=== PATIENT | female | born 1990 | race African-American/Black ===

== ENCOUNTER 2017-03-01 20:10 | Emergency (ER) | payer OTHER ==
[2017-03-01 20:33] VITALS: BP 117/70
== END 2017-03-01 22:25 | disposition home or self-care (01) ==
LOC: ED 20:10
DX: S39.012A Strain of muscle, fascia and tendon of lower back, initial encounter (principal); V49.49XA Driver injured in collision with other motor vehicles in traffic accident, initial encounter; Y93.89 Activity, other specified; Y99.8 Other external cause status; Y92.89 Other specified places as the place of occurrence of the external cause
CPT/HCPCS: J1885